=== PATIENT | male | born 1960 | race Caucasian/White ===

== ENCOUNTER 2017-03-08 09:19 | Inpatient (IN) | payer OTHER ==
[2017-03-08] VITALS (10 sets, daily range): BP systolic 93–117; BP diastolic 60–76; PULSE 83–96; TEMP 97.5–98
[~2017-03-08] VITALS: Ht 177.8 cm; Wt 71.7 kg
[2017-03-08 11:51] LABS: ADJUSTED CALCIUM 10.8 mg/dL (8.4-10.2); ALBUMIN 4.1 gm/dL (3.5-5.0); BILIRUBIN,TOTAL 0.7 mg/dL (0.0-1.0); C-REACTIVE PROTEIN 7.8 mg/dL (0.0-0.9); CALCIUM 10.9 mg/dL (8.4-10.2); CREATININE, serum 1.54 mg/dL (0.66-1.25); POTASSIUM 5.6 mmol/L (3.4-5.0); TOTAL PROTEIN 8.5 gm/dL (6.4-8.2)
[2017-03-08] MEDS ORDERED: COREG 6.256.25 MG/TA PO (11:53)
[2017-03-08] MEDS ORDERED: MICARDIS40 MG PO (11:53)
[2017-03-08] MEDS ORDERED: GLUCOPHAGE1000 MG PO ×2 (11:54→11:55)
[2017-03-08] MEDS ORDERED: ZOCOR 40MG40 MG PO (11:56)
[2017-03-08] MEDS ORDERED: LEADER NATUR1000 MCG PO (11:56)
[2017-03-08] MEDS ORDERED: ERGOCALCIFER50000 IU PO (11:56)
[2017-03-08] MEDS ORDERED: ASPIRIN E.C. 8181 MG PO (11:57)
[2017-03-08] MEDS ORDERED: IBU800 M1 PO (11:57)
[2017-03-08 12:00] LABS: MEAN CELL VOLUME 89 fl (80.0-100.0); MEAN CORPUSCULAR HGB CONC 33 g/dl (33.0-37.0); MEAN PLATELET VOLUME 10.4 fl (7.4-10.4); PLATELET COUNT 485 K/mm3 (130-400); RED BLOOD COUNT 3.77 M/mm3 (4.20-5.60); REDCELL DISTRIBUTION WIDTH-CV 12.2 % (11.5-14.5); WHITE BLOOD COUNT 9.5 K/mm3 (4.8-10.8)
[2017-03-08 12:01] LABS: HEMATOCRIT 33.5 % (42.0-52.0); MEAN CORPUSCULAR HEMOGLOBIN 29 pg (27.0-31.0)
[2017-03-08 12:27] LABS: ERYTHROCYTE SEDIMENTATION RATE > 140 mm/hr (0-30)
[2017-03-08 12:30] LABS: SYNOVIAL FL. MONONUCLEAR 22.5 % (0-75); SYNOVIAL FL. POLYMORPHONUCLEAR 77.5 % (0-25); SYNOVIAL FLUID WBC 139927 /mm3 (200-600)
[2017-03-08 12:44] LABS: SYNOVIAL FLUID APPEARANCE TURBID; SYNOVIAL FLUID COLOR PINK
[2017-03-08 13:33] LABS: INR 1.3 (0.8-3.0); PROTHROMBIN TIME 14.7 SECONDS (9.7-12.8)
[2017-03-09 01:21] VITALS: BP 90/61; PULSE 85; TEMP 97.5
[2017-03-09 05:41] VITALS: BP 101/61; PULSE 74; TEMP 98.1
[2017-03-09 06:59] LABS: HEMATOCRIT 29.1 % (42.0-52.0); HEMOGLOBIN 9.3 g/dl (13.5-18.0)
[2017-03-09 09:40] VITALS: BP 103/60; PULSE 88; TEMP 97.7
[2017-03-09 14:07] VITALS: BP 112/76; PULSE 101; TEMP 97.6
[2017-03-09 14:12] LABS: BASO % 0.3 % (0.0-2.0); EOS % 0.3 % (0-4.0); GRAN # 7.9 (1.4-6.5); GRAN % 66.2 % (42.2-75.2); LYMPH # 2.8 (1.2-3.4); LYMPH % 23.7 % (20.0-51.0); MEAN CELL VOLUME 88 fl (80.0-100.0); MEAN CORPUSCULAR HGB CONC 34 g/dl (33.0-37.0); MEAN PLATELET VOLUME 10.3 fl (7.4-10.4); MONO # 1.1 (0.1-0.6); MONO % 9.2 % (1.7-9.3); PLATELET COUNT 410 K/mm3 (130-400); RED BLOOD COUNT 3.17 M/mm3 (4.20-5.60); REDCELL DISTRIBUTION WIDTH-CV 12.3 % (11.5-14.5)
[2017-03-09 14:15] LABS: CALCIUM 9.3 mg/dL (8.4-10.2); CREATININE, serum 1.17 mg/dL (0.66-1.25); POTASSIUM 4.8 mmol/L (3.4-5.0)
[2017-03-09 14:21] LABS: HEMOGLOBIN 9.4 g/dl (13.5-18.0); MEAN CORPUSCULAR HEMOGLOBIN 30 pg (27.0-31.0)
[2017-03-09 17:48] VITALS: BP 114/74; PULSE 98; TEMP 98.5
[2017-03-09 21:34] VITALS: BP 115/69; PULSE 102; TEMP 98.5
[2017-03-10] VITALS (13 sets, daily range): BP systolic 95–136; BP diastolic 47–89; PULSE 80–97; TEMP 98–98.7
[2017-03-10 06:47] LABS: CALCIUM 8.7 mg/dL (8.4-10.2); CREATININE, serum 0.89 mg/dL (0.66-1.25); MAGNESIUM 1.3 mg/dL (1.6-2.3); POTASSIUM 4.4 mmol/L (3.4-5.0)
[2017-03-11 00:05] VITALS: BP 106/67; PULSE 93; TEMP 99
[2017-03-11 05:47] VITALS: BP 112/63; PULSE 93; TEMP 98.8
[2017-03-11 06:49] LABS: ADD PATHOLOGY DIFF REVIEW NO
[2017-03-11 07:09] LABS: MEAN CELL VOLUME 91 fl (80.0-100.0); MEAN CORPUSCULAR HGB CONC 32 g/dl (33.0-37.0); MEAN PLATELET VOLUME 10.5 fl (7.4-10.4); PLATELET COUNT 359 K/mm3 (130-400); RED BLOOD COUNT 2.83 M/mm3 (4.20-5.60); REDCELL DISTRIBUTION WIDTH-CV 12.2 % (11.5-14.5); WHITE BLOOD COUNT 6.8 K/mm3 (4.8-10.8)
[2017-03-11 07:10] LABS: C-REACTIVE PROTEIN 4.8 mg/dL (0.0-0.9); CALCIUM 8.3 mg/dL (8.4-10.2); CREATININE, serum 0.97 mg/dL (0.66-1.25); HEMATOCRIT 25.6 % (42.0-52.0); HEMOGLOBIN 8.2 g/dl (13.5-18.0); MAGNESIUM 1.3 mg/dL (1.6-2.3); MEAN CORPUSCULAR HEMOGLOBIN 29 pg (27.0-31.0); POTASSIUM 4.3 mmol/L (3.4-5.0)
[2017-03-11 07:44] VITALS: BP 139/58; PULSE 86; TEMP 98.7
[2017-03-11 07:51] LABS: BAND 4 % (0-10); BASOPHIL 1 % (0-2); EOSINOPHIL 2 % (0-4); METAMYELOCYTE 3 % (0-0); NEUTROPHILS 65 % (42.0-75.2); PLATELET ESTIMATE NORMAL (NORMAL); TOTAL CELLS COUNTED 100
[2017-03-11] MEDS ORDERED: NORCO 325 MG-7.1 TAB PO (09:00)
[2017-03-11 10:36] VITALS: BP 119/70; PULSE 86; TEMP 98.4
[2017-03-11] MEDS ORDERED: CEFEPIME2 GM/100 M IV (11:49)
[2017-03-11] MEDS ORDERED: VANCOCIN HCL1 GM IV (11:49)
[2017-03-11 14:35] VITALS: BP 110/68; PULSE 91; TEMP 98.9
[2017-03-11 17:09] VITALS: BP 115/80; PULSE 86; TEMP 98.2
== END 2017-03-11 20:10 | disposition home or self-care (01) | DRG 488 ==
LOC: SURG 09:19
PROVIDERS: Internal Medicine; Orthopaedic Surgery; Physician Assistant
PROC: 0SBC4ZZ Excision of Right Knee Joint, Percutaneous Endoscopic Approach (ICD-10-PCS; principal; 2017-03-08 17:00)
PROC: 0SBC4ZZ Excision of Right Knee Joint, Percutaneous Endoscopic Approach (ICD-10-PCS; 2017-03-10)
PROC: 0QBG0ZZ Excision of Right Tibia, Open Approach (ICD-10-PCS; 2017-03-10)
DX: M00.9 Pyogenic arthritis, unspecified (principal); M86.8X6 Other osteomyelitis, lower leg; N17.9 Acute kidney failure, unspecified; M25.461 Effusion, right knee; E11.9 Type 2 diabetes mellitus without complications; I10 Essential (primary) hypertension; E53.8 Deficiency of other specified B group vitamins; E87.5 Hyperkalemia; E83.52 Hypercalcemia; E83.42 Hypomagnesemia
CPT/HCPCS: 99223; 99232-AI; 99233-AI; 99239; A9284; C1751; C1894; J0690; J0692; J1100; J1170; J1644; J1815; J1885; J2250; J2405; J2704; J2765; J3010; J3370; J7030; J7050

== ENCOUNTER 2017-03-12 17:44 | Outpatient (RCR) | payer OTHER ==
[~2017-03-12] VITALS: Ht 177.8 cm; Wt 70.9 kg
[2017-03-12 07:20] VITALS: BP 128/82; PULSE 85; TEMP 97.5
[~2017-03-12 17:44] MED LIST: ASPIRIN E.C. 8181 MG PO; CEFEPIME2 GM/100 M IV; COREG 6.256.25 MG/TA PO; ERGOCALCIFER50000 IU PO; GLUCOPHAGE1000 MG PO; IBU800 M1 PO; LEADER NATUR1000 MCG PO; MICARDIS40 MG PO; NORCO 325 MG-7.1 TAB PO; VANCOCIN HCL1 GM IV; ZOCOR 40MG40 MG PO
[2017-03-13 07:18] VITALS: BP 106/67; PULSE 85; TEMP 97.4
[2017-03-13 07:44] LABS: ADJUSTED CALCIUM 9.9 mg/dL (8.4-10.2); ALANINE AMINOTRANSFERASE 22 U/L (21-72); ALBUMIN 3.4 gm/dL (3.5-5.0); ALKALINE PHOSPHATASE 68 U/L (50-136); ANION GAP 9 mmol/L (7-16); BILIRUBIN,TOTAL 0.7 mg/dL (0.0-1.0); BLOOD UREA NITROGEN 13 mg/dL (9-20); CALCIUM 9.4 mg/dL (8.4-10.2); CARBON DIOXIDE 22 mmol/L (22-30); CHLORIDE 105 mmol/L (98-107); CREATININE, serum 0.92 mg/dL (0.66-1.25); GLUCOSE 151 mg/dL (74-106); POTASSIUM 3.6 mmol/L (3.4-5.0); SODIUM 136 mmol/L (137-145)
[2017-03-13 07:45] LABS: MEAN CELL VOLUME 88 fl (80.0-100.0); MEAN CORPUSCULAR HGB CONC 34 g/dl (33.0-37.0); MEAN PLATELET VOLUME 10.5 fl (7.4-10.4); PLATELET COUNT 412 K/mm3 (130-400); RED BLOOD COUNT 2.55 M/mm3 (4.20-5.60); REDCELL DISTRIBUTION WIDTH-CV 12.3 % (11.5-14.5); WHITE BLOOD COUNT 10.3 K/mm3 (4.8-10.8)
[2017-03-13 07:54] LABS: VANCOMYCIN TROUGH 17.12 ug/mL (7.00-20.00)
[2017-03-13 07:57] LABS: TROPONIN-I < 0.012 ng/mL (0.000-0.034)
[2017-03-13 07:59] LABS: HEMATOCRIT 22.3 % (42.0-52.0); HEMOGLOBIN 7.5 g/dl (13.5-18.0); MEAN CORPUSCULAR HEMOGLOBIN 29 pg (27.0-31.0)
[2017-03-13 18:15] VITALS: BP 116/73; PULSE 92; TEMP 97.4
[2017-03-14 07:27] VITALS: BP 100/60; PULSE 82; TEMP 97.2
[2017-03-14 18:00] VITALS: BP 114/73; PULSE 85; TEMP 97.9
[2017-03-15 07:22] VITALS: BP 114/71; PULSE 85; TEMP 97.3
[2017-03-15 17:31] VITALS: BP 126/68; PULSE 90; TEMP 98.2
[2017-03-16 07:18] VITALS: BP 119/83; PULSE 73; TEMP 97.7
[2017-03-16 18:01] VITALS: BP 112/81; PULSE 86; TEMP 98
[2017-03-17 07:14] VITALS: BP 120/70; PULSE 79; TEMP 97.5
[2017-03-17 16:02] LABS: C-REACTIVE PROTEIN 2.5 mg/dL (0.0-0.9)
[2017-03-20 14:57] VITALS: BP 117/72; PULSE 90; TEMP 98.3
[2017-03-20 16:23] LABS: BASO # 0.1 (0.0-0.2); BASO % 0.8 % (0.0-2.0); EOS # 0.2 (0.0-0.7); EOS % 3.2 % (0-4.0); GRAN # 3.7 (1.4-6.5); GRAN % 57.9 % (42.2-75.2); HEMATOCRIT 24.9 % (42.0-52.0); HEMOGLOBIN 8.2 g/dl (13.5-18.0); LYMPH # 1.9 (1.2-3.4); LYMPH % 28.7 % (20.0-51.0); MEAN CELL VOLUME 86 fl (80.0-100.0); MEAN CORPUSCULAR HEMOGLOBIN 28 pg (27.0-31.0); MEAN CORPUSCULAR HGB CONC 33 g/dl (33.0-37.0); MEAN PLATELET VOLUME 10.9 fl (7.4-10.4); MONO # 0.6 (0.1-0.6); MONO % 9.1 % (1.7-9.3); PLATELET COUNT 297 K/mm3 (130-400); RED BLOOD COUNT 2.89 M/mm3 (4.20-5.60); REDCELL DISTRIBUTION WIDTH-CV 13.2 % (11.5-14.5); WHITE BLOOD COUNT 6.5 K/mm3 (4.8-10.8)
[2017-03-20 16:39] LABS: ADJUSTED CALCIUM 9.3 mg/dL (8.4-10.2); ALBUMIN 3.4 gm/dL (3.5-5.0); BILIRUBIN,TOTAL 0.5 mg/dL (0.0-1.0); CALCIUM 8.8 mg/dL (8.4-10.2); CREATININE, serum 0.83 mg/dL (0.66-1.25); TOTAL PROTEIN 6.8 gm/dL (6.4-8.2)
[2017-03-21 14:13] VITALS: BP 125/79; PULSE 80; TEMP 98
[2017-03-22] MEDS ORDERED: FERROUS SULFAT160 M1 (14:19)
[2017-03-22] MEDS ORDERED: VTAMINC250TA (14:20)
[2017-03-22 14:24] VITALS: BP 135/83; PULSE 80; TEMP 98.2
[2017-03-23] MEDS ORDERED: FERRO-TIME325 MG PO (15:44)
[2017-03-23 15:52] VITALS: BP 132/81; PULSE 82; TEMP 97.2
[2017-03-24 15:01] VITALS: BP 117/72; PULSE 85; TEMP 97.8
[2017-03-28 15:49] VITALS: BP 126/78; PULSE 73; TEMP 98.3
[2017-03-28 15:52] LABS: MEAN CELL VOLUME 87 fl (80.0-100.0); MEAN CORPUSCULAR HGB CONC 33 g/dl (33.0-37.0); MEAN PLATELET VOLUME 10.7 fl (7.4-10.4); PLATELET COUNT 322 K/mm3 (130-400); RED BLOOD COUNT 3.29 M/mm3 (4.20-5.60); REDCELL DISTRIBUTION WIDTH-CV 13.9 % (11.5-14.5); WHITE BLOOD COUNT 5.7 K/mm3 (4.8-10.8)
[2017-03-28 15:54] LABS: ADD PATHOLOGY DIFF REVIEW NO; HEMATOCRIT 28.7 % (42.0-52.0); HEMOGLOBIN 9.4 g/dl (13.5-18.0); MEAN CORPUSCULAR HEMOGLOBIN 29 pg (27.0-31.0); TOTAL CELLS COUNTED 0
[2017-03-28 16:12] LABS: ADJUSTED CALCIUM 9.5 mg/dL (8.4-10.2); BILIRUBIN,TOTAL 0.5 mg/dL (0.0-1.0); C-REACTIVE PROTEIN 0.6 mg/dL (0.0-0.9); CALCIUM 9.5 mg/dL (8.4-10.2); CREATININE, serum 0.8 mg/dL (0.66-1.25); POTASSIUM 4.8 mmol/L (3.4-5.0); TOTAL PROTEIN 7.3 gm/dL (6.4-8.2)
[2017-03-28 16:17] LABS: ERYTHROCYTE SEDIMENTATION RATE 54 mm/hr (0-30)
[2017-03-30 17:07] VITALS: BP 95/65; PULSE 100; TEMP 97.9
[2017-03-31 17:05] VITALS: BP 108/73; PULSE 92; TEMP 97.9
[2017-04-03 17:22] VITALS: BP 107/71; PULSE 98; TEMP 98.2
[2017-04-03 17:23] LABS: BASO # 0.1 (0.0-0.2); BASO % 1.6 % (0.0-2.0); EOS # 0.7 (0.0-0.7); EOS % 8.9 % (0-4.0); GRAN # 3.1 (1.4-6.5); GRAN % 39.4 % (42.2-75.2); HEMOGLOBIN 10.7 g/dl (13.5-18.0); LYMPH # 2.8 (1.2-3.4); MEAN CELL VOLUME 86 fl (80.0-100.0); MEAN CORPUSCULAR HEMOGLOBIN 29 pg (27.0-31.0); MEAN CORPUSCULAR HGB CONC 33 g/dl (33.0-37.0); MEAN PLATELET VOLUME 10.9 fl (7.4-10.4); MONO # 1.2 (0.1-0.6); MONO % 14.6 % (1.7-9.3); PLATELET COUNT 272 K/mm3 (130-400); RED BLOOD COUNT 3.72 M/mm3 (4.20-5.60); REDCELL DISTRIBUTION WIDTH-CV 13.6 % (11.5-14.5); WHITE BLOOD COUNT 7.9 K/mm3 (4.8-10.8)
[2017-04-03 17:34] LABS: ADJUSTED CALCIUM 9.6 mg/dL (8.4-10.2); ALBUMIN 4.5 gm/dL (3.5-5.0); BILIRUBIN,TOTAL 0.6 mg/dL (0.0-1.0); C-REACTIVE PROTEIN 0.7 mg/dL (0.0-0.9); CREATININE, serum 0.98 mg/dL (0.66-1.25); POTASSIUM 4.1 mmol/L (3.4-5.0)
[2017-04-03 17:42] LABS: ERYTHROCYTE SEDIMENTATION RATE 40 mm/hr (0-30)
[2017-04-04 17:17] VITALS: BP 106/69; PULSE 94; TEMP 97.9
[2017-04-05 17:25] VITALS: BP 116/69; PULSE 79; TEMP 97.9
[2017-04-06 17:19] VITALS: BP 116/75; PULSE 87; TEMP 97.4
[2017-04-07 17:05] VITALS: BP 113/72; PULSE 86; TEMP 98
[2017-04-10 16:49] VITALS: BP 123/74; PULSE 87; TEMP 97.5
[2017-04-10 17:24] LABS: BASO # 0.1 (0.0-0.2); BASO % 0.8 % (0.0-2.0); EOS # 0.8 (0.0-0.7); EOS % 9.1 % (0-4.0); GRAN # 4.2 (1.4-6.5); GRAN % 49.5 % (42.2-75.2); LYMPH # 2.6 (1.2-3.4); LYMPH % 30.9 % (20.0-51.0); MEAN CELL VOLUME 86 fl (80.0-100.0); MEAN CORPUSCULAR HGB CONC 33 g/dl (33.0-37.0); MEAN PLATELET VOLUME 11.1 fl (7.4-10.4); MONO # 0.8 (0.1-0.6); MONO % 9.2 % (1.7-9.3); PLATELET COUNT 196 K/mm3 (130-400); RED BLOOD COUNT 3.58 M/mm3 (4.20-5.60); REDCELL DISTRIBUTION WIDTH-CV 13.6 % (11.5-14.5); WHITE BLOOD COUNT 8.4 K/mm3 (4.8-10.8)
[2017-04-10 17:36] LABS: HEMATOCRIT 30.8 % (42.0-52.0); HEMOGLOBIN 10.2 g/dl (13.5-18.0); MEAN CORPUSCULAR HEMOGLOBIN 28 pg (27.0-31.0)
[2017-04-10 17:37] LABS: ADJUSTED CALCIUM 9.2 mg/dL (8.4-10.2); ALANINE AMINOTRANSFERASE 27 U/L (21-72); ALBUMIN 4.2 gm/dL (3.5-5.0); ALKALINE PHOSPHATASE 61 U/L (50-136); ANION GAP 15 mmol/L (7-16); BILIRUBIN,TOTAL 0.6 mg/dL (0.0-1.0); BLOOD UREA NITROGEN 11 mg/dL (9-20); CALCIUM 9.4 mg/dL (8.4-10.2); CARBON DIOXIDE 21 mmol/L (22-30); CHLORIDE 104 mmol/L (98-107); CREATININE, serum 0.88 mg/dL (0.66-1.25); GLUCOSE 192 mg/dL (74-106); POTASSIUM 3.8 mmol/L (3.4-5.0); SODIUM 140 mmol/L (137-145); TOTAL PROTEIN 7.3 gm/dL (6.4-8.2)
[2017-04-10 17:38] LABS: C-REACTIVE PROTEIN < 0.5 mg/dL (0.0-0.9)
[2017-04-10 17:55] LABS: ERYTHROCYTE SEDIMENTATION RATE 22 mm/hr (0-30)
[2017-04-12 17:57] VITALS: BP 107/69; PULSE 90; TEMP 98
[2017-04-13 17:19] VITALS: BP 117/76; PULSE 72; TEMP 97.5
[2017-04-14 17:08] VITALS: BP 112/69; PULSE 86; TEMP 97.9
[2017-04-17 19:13] LABS: BASO # 0.1 (0.0-0.2); BASO % 0.8 % (0.0-2.0); EOS # 0.4 (0.0-0.7); EOS % 4.6 % (0-4.0); GRAN # 3.8 (1.4-6.5); GRAN % 46.9 % (42.2-75.2); LYMPH % 37.5 % (20.0-51.0); MEAN CELL VOLUME 87 fl (80.0-100.0); MEAN CORPUSCULAR HGB CONC 33 g/dl (33.0-37.0); MEAN PLATELET VOLUME 12.5 fl (7.4-10.4); MONO # 0.8 (0.1-0.6); MONO % 9.8 % (1.7-9.3); PLATELET COUNT 222 K/mm3 (130-400); RED BLOOD COUNT 3.97 M/mm3 (4.20-5.60)
[2017-04-17 19:20] LABS: HEMATOCRIT 34.4 % (42.0-52.0); HEMOGLOBIN 11.3 g/dl (13.5-18.0); MEAN CORPUSCULAR HEMOGLOBIN 28 pg (27.0-31.0)
[2017-04-17 19:35] LABS: ADJUSTED CALCIUM 9.5 mg/dL (8.4-10.2); ALANINE AMINOTRANSFERASE 34 U/L (21-72); ALBUMIN 4.5 gm/dL (3.5-5.0); ALKALINE PHOSPHATASE 62 U/L (50-136); ANION GAP 16 mmol/L (7-16); BILIRUBIN,TOTAL 0.6 mg/dL (0.0-1.0); BLOOD UREA NITROGEN 16 mg/dL (9-20); CALCIUM 9.9 mg/dL (8.4-10.2); CARBON DIOXIDE 23 mmol/L (22-30); CHLORIDE 102 mmol/L (98-107); CREATINE KINASE 62 U/L (55-170); CREATININE, serum 0.93 mg/dL (0.66-1.25); GLUCOSE 161 mg/dL (74-106); POTASSIUM 3.8 mmol/L (3.4-5.0); SODIUM 141 mmol/L (137-145); TOTAL PROTEIN 7.6 gm/dL (6.4-8.2)
[2017-04-17 19:39] LABS: C-REACTIVE PROTEIN < 0.5 mg/dL (0.0-0.9)
[2017-04-17 19:44] LABS: ERYTHROCYTE SEDIMENTATION RATE 12 mm/hr (0-30)
[2017-04-18 17:25] VITALS: BP 110/71; PULSE 80; TEMP 97.7
[2017-04-19 17:00] VITALS: BP 102/65; PULSE 87; TEMP 97.9
[2017-04-20 17:02] VITALS: BP 100/66; PULSE 88; TEMP 97.9
== END 2017-04-24 14:48 | disposition home or self-care (01) ==
LOC: EUO 03-13 18:00
PROVIDERS: Internal Medicine Infectious Disease
DX: M00.061 Staphylococcal arthritis, right knee (principal); B95.61 Methicillin susceptible Staphylococcus aureus infection as the cause of diseases classified elsewhere
CPT/HCPCS: J0692; J0878; J1644; J3370; J7050

== ENCOUNTER → 2017-05-16 | Outpatient (CLI) | payer OTHER ==
[~2017-05-16] MED LIST changes: +FERRO-TIME325 MG PO; +FERROUS SULFAT160 M1; +VTAMINC250TA
[2017-05-16 17:49] LABS: ADJUSTED CALCIUM 9.4 mg/dL (8.4-10.2); ALANINE AMINOTRANSFERASE 32 U/L (21-72); ALBUMIN 4.9 gm/dL (3.5-5.0); ALKALINE PHOSPHATASE 51 U/L (50-136); ANION GAP 12 mmol/L (7-16); BASO # 0.1 (0.0-0.2); BASO % 0.9 % (0.0-2.0); BILIRUBIN,TOTAL 0.7 mg/dL (0.0-1.0); BLOOD UREA NITROGEN 16 mg/dL (9-20); CALCIUM 10.1 mg/dL (8.4-10.2); CARBON DIOXIDE 26 mmol/L (22-30); CHLORIDE 102 mmol/L (98-107); EOS # 0.1 (0.0-0.7); EOS % 1.9 % (0-4.0); GLUCOSE 107 mg/dL (74-106); GRAN # 2.8 (1.4-6.5); GRAN % 43.7 % (42.2-75.2); LYMPH # 2.8 (1.2-3.4); LYMPH % 43.2 % (20.0-51.0); MEAN CELL VOLUME 88 fl (80.0-100.0); MEAN CORPUSCULAR HEMOGLOBIN 29 pg (27.0-31.0); MEAN CORPUSCULAR HGB CONC 33 g/dl (33.0-37.0); MEAN PLATELET VOLUME 11.3 fl (7.4-10.4); MONO # 0.6 (0.1-0.6); PLATELET COUNT 258 K/mm3 (130-400); POTASSIUM 4.2 mmol/L (3.4-5.0); RED BLOOD COUNT 4.11 M/mm3 (4.20-5.60); SODIUM 140 mmol/L (137-145); WHITE BLOOD COUNT 6.4 K/mm3 (4.8-10.8)
[2017-05-16 17:50] LABS: C-REACTIVE PROTEIN < 0.5 mg/dL (0.0-0.9)
[2017-05-16 18:07] LABS: ERYTHROCYTE SEDIMENTATION RATE 10 mm/hr (0-30)
== END ==
LOC: COL.LAB 17:06
PROVIDERS: Internal Medicine Infectious Disease
DX: M00.9 Pyogenic arthritis, unspecified (principal); A49.01 Methicillin susceptible Staphylococcus aureus infection, unspecified site

== ENCOUNTER → 2017-06-19 | Outpatient (CLI) | payer OTHER ==
[2017-06-19 17:45] LABS: BASO # 0.1 (0.0-0.2); BASO % 0.8 % (0.0-2.0); EOS # 0.1 (0.0-0.7); EOS % 1.9 % (0-4.0); GRAN # 3.3 (1.4-6.5); GRAN % 45.6 % (42.2-75.2); HEMATOCRIT 38.2 % (42.0-52.0); HEMOGLOBIN 13.1 g/dl (13.5-18.0); LYMPH % 41.8 % (20.0-51.0); MEAN CELL VOLUME 87 fl (80.0-100.0); MEAN CORPUSCULAR HEMOGLOBIN 30 pg (27.0-31.0); MEAN CORPUSCULAR HGB CONC 34 g/dl (33.0-37.0); MEAN PLATELET VOLUME 10.8 fl (7.4-10.4); MONO # 0.7 (0.1-0.6); MONO % 9.6 % (1.7-9.3); PLATELET COUNT 213 K/mm3 (130-400); RED BLOOD COUNT 4.39 M/mm3 (4.20-5.60); WHITE BLOOD COUNT 7.2 K/mm3 (4.8-10.8)
[2017-06-19 17:56] LABS: ADJUSTED CALCIUM 9.2 mg/dL (8.4-10.2); ALANINE AMINOTRANSFERASE 36 U/L (21-72); ALBUMIN 4.8 gm/dL (3.5-5.0); ALKALINE PHOSPHATASE 50 U/L (50-136); ANION GAP 11 mmol/L (7-16); BILIRUBIN,TOTAL 0.5 mg/dL (0.0-1.0); BLOOD UREA NITROGEN 16 mg/dL (9-20); CALCIUM 9.8 mg/dL (8.4-10.2); CARBON DIOXIDE 25 mmol/L (22-30); CHLORIDE 103 mmol/L (98-107); CREATININE, serum 1.07 mg/dL (0.66-1.25); GLUCOSE 108 mg/dL (74-106); POTASSIUM 4.3 mmol/L (3.4-5.0); SODIUM 139 mmol/L (137-145); TOTAL PROTEIN 7.5 gm/dL (6.4-8.2)
[2017-06-19 17:58] LABS: C-REACTIVE PROTEIN < 0.5 mg/dL (0.0-0.9)
[2017-06-19 18:08] LABS: ERYTHROCYTE SEDIMENTATION RATE 1 mm/hr (0-30)
== END ==
LOC: COL.LAB 17:17
PROVIDERS: Internal Medicine Infectious Disease
DX: M00.9 Pyogenic arthritis, unspecified (principal)